=== PATIENT | female | born 1950 | race Caucasian/White ===

== ENCOUNTER 2017-03-17 10:13 | Day surgery (SDC) | payer OTHER ==
[~2017-03-17 10:13] MED LIST: EPINEPHrine 1 MG/ML SDV ONE; Lactated Ringers 1,000 ML IV SCH
--- NOTE | 2017-03-17 13:28 | PCM.PREANE ---
Preanesthetic Assessment - Procedure Proposed Procedure: nasal septal button placement - Anesthesia/Transfusion/Family Hx Anesthesia History: Prior Anesthesia Without Reaction Family History of Anesthesia Reaction: No Transfusion History: No Prior Transfusion(s) - Review of Systems General: No Symptoms Pulmonary: Other Cardiovascular: Other (HTN; hypercholesterolemia) Gastrointestinal: No Symptoms Neurological: No Symptoms Other: Reports: None - Physical Assessment NPO Status Date: 03/16/17 NPO Status Time: 23:00 O2 Sat by Pulse Oximetry: 99 Respiratory Rate: 16 Vital Signs: Last Vital Signs Temp 98.6 F 03/17/17 10:40 Pulse 87 03/17/17 10:40 Resp 16 03/17/17 10:40 BP 144/84 H 03/17/17 10:40 Pulse Ox 99 03/17/17 10:40 Height: 5 ft 6 in Weight: 151 lb ASA Class: 2 Mental Status: Alert & Oriented x3 Airway Class: Mallampati = 2 Dentition: Reports: Normal Dentition Thyro-Mental Finger Breadths: 3 Mouth Opening Finger Breadths: 3 ROM/Head Extension: Full Lungs: Clear to Auscultation, Normal Respiratory Effort Cardiovascular: Regular Rate, Regular Rhythm, No Murmurs - Allergies Allergies/Adverse Reactions: Allergies Allergy/AdvReac Type Severity Reaction Status Date / Time No Known Allergies Allergy Verified 03/14/17 13:17 - Blood Blood Available: No Product(s) Available: None - Anesthesia Plan Pre-Op Medication Ordered: None - Acknowledgements Anesthesia Type Planned: General Anesthesia (vs MAC (deep)) Pt an Appropriate Candidate for the Planned Anesthesia: Yes Alternatives and Risks of Anesthesia Discussed w Pt/Guardian: Yes Pt/Guardian Understands and Agrees with Anesthesia Plan: Yes PreAnesthesia Questionnaire HEENT History: Reports: Allergic Rhinitis, Other (See Below) Other HEENT History: wears glasses Cardiovascular History: Reports: High Cholesterol, Hypertension Genitourinary History: Reports: None D[employer]LL[employer]'S OFFSIDER History: Reports: Musculoskeletal History: Reports: Arthritis - Past Surgical History Head Surgeries/Procedures: Reports: None Female Surgical History: Reports: Tubal Ligation - SUBSTANCE USE Smoking Status *Q: Never Smoker Days Per Week of Alcohol Use: 3 Number of Drinks Per Day: 1 Total Drinks Per Week: 3 Recreational Drug Use History: No - HOME MEDS Home Medications: Home Meds Lisinopril/Hydrochlorothiazide [Lisinopril-Hctz 10-12.5 mg Tab] 1 tab PO DAILY 03/14/17 [History] Potassium Chloride 10 meq PO DAILY 03/14/17 [History] - CURRENT (IN HOUSE) MEDS Current Meds: Current Medications Lactated Ringer's (Ringers, Lactated) 1,000 mls @ 100 mls/hr IV ASDIRECTED LIA Last Admin: 03/17/17 11:00 Dose: 100 mls/hr Discontinued Medications Epinephrine HCl (Adrenalin) Confirm Administered Dose 1 mg .ROUTE .STK-MED ONE Stop: 03/17/17 07:47
[2017-03-17] MEDS ORDERED: Lidocaine 2% 5 ML SDV ONE (13:54)
[2017-03-17] MEDS ORDERED: fentaNYL 100 MCG/2 ML SDV ONE (13:55)
[2017-03-17] MEDS ORDERED: Propofol 200 MG/20 ML SDV ONE ×2 (13:55→15:11)
[2017-03-17] MEDS ORDERED: Midazolam 1 MG/ML 2 ML SDV ONE (13:55)
[2017-03-17] MEDS ORDERED: Lidocaine 2% with EPINEPHrine 1:100,000 20 ML MDV ONE (14:11)
--- NOTE | 2017-03-17 14:17 | PCM.HPR ---
H & P Addendum review - H & P Addendum Review Date of Original H & P: 03/02/17 Date Reviewed: 03/17/17 Time Reviewed: 14:00 Patient was Examined: No Changes
--- NOTE | 2017-03-17 14:37 | PCM.OPNOTE ---
- General Post-Op/Procedure Note Date of Surgery/Procedure: 03/17/17 Operative Procedure(s): Insertion of nasal septal button Findings: Anterior nasal septal perforation - 2.5 cm X 2 cm; clean edges Pre Op Diagnosis: Nasal septal perforation, crusting, nasal pain, post nasal drip Post-Op Diagnosis: Nasal septal perforation, crusting, nasal pain, post nasal drip Anesthesia Technique: Moderate Sedation Primary Surgeon: Supriya Wiggins Anesthesia Provider: Kumar Garcia Condition: Good Free Text/Narrative:: Indications: Nasal septal perforation, crusting, nasal pain, post nasal drip. She has tried topical nasal medications without much relief. Operative procedure: An informed consent was obtained and patient was brought back to operating room and laid supine on the operating table. Anesthesia was - moderate sedation - please see anesthesia notes for details. Topical anesthesia was administered with a 20% benzocaine spray. Local anesthetic was injected - 2% lidocaine with [id number] epinephrine - 3mls was used. The septal perforation was sized - 2.5cm X 2.0 cm. Endoscope was used for photo documentation. The septal button was trimmed to size - with minimal overlapping edges over the adjacent nasal septum. A slit was made in the button from periphery to the hub and this was hinged over the septum posteriorly. The edge was then grasped from the contralateral side with hemostat and rotated like a corkskrew till it was a snug fit. Bacitracin ointment was applied. This concluded the procedure an the patient was handed back to anesthesia for recovery.
--- NOTE | 2017-03-17 15:49 | PCM.POSTAN ---
POST ANESTHESIA ASSESSMENT - MENTAL STATUS Mental Status: Alert, Oriented - VITAL SIGNS Pulse Rate: 82 SaO2: 96 (ROOM AIR) Resp Rate: 12 Blood Pressure: 134/76 Temperature: 2 C - RESPIRATORY Respiratory Status: Respiratory Rate WNL, Airway Patent, O2 Saturation Stable - CARDIOVASCULAR CV Status: Pulse Rate WNL, Blood Pressure Stable - GASTROINTESTINAL GI Status: No Symptoms - POST OP HYDRATION Hydration Status: Adequate & Stable - OBSERVATIONS Free Text/Narrative:: Responds verval to verbal comfortable. Warm pink and dri vitals in stable limits
--- NOTE | 2017-03-17 16:04 | PCM48HPAN ---
Post Anesthesia Note - EVALUATION WITHIN 48HRS OF ANESTHETIC Vital Signs in Normal Range: Yes Patient Participated in Evaluation: Yes Respiratory Function Stable: Yes Airway Patent: Yes Cardiovascular Function Stable: Yes Hydration Status Stable: Yes Pain Control Satisfactory: Yes Nausea and Vomiting Control Satisfactory: Yes Mental Status Recovered: Yes - COMMENTS/OBSERVATIONS Free Text/Narrative:: No complaints: wants to go home JOHN
[2017-03-17] MEDS ORDERED: Acetaminophen 325 MG Tab PO PRN (16:11)
[2017-03-17] MEDS ORDERED: Acetaminophen 1,000 MG in Premix Bag 1 BAG IV ONE (16:26)
== END 2017-03-17 17:20 | disposition home or self-care (01) ==
LOC: MW.SDS 10:13
PROVIDERS: ATTEND Otolaryngology
DX: J34.89 Other specified disorders of nose and nasal sinuses (principal); I10 Essential (primary) hypertension; E78.00 Pure hypercholesterolemia, unspecified; M19.90 Unspecified osteoarthritis, unspecified site; J30.9 Allergic rhinitis, unspecified; Z87.891 Personal history of nicotine dependence; Z79.51 Long term (current) use of inhaled steroids; Z79.899 Other long term (current) drug therapy; Z82.62 Family history of osteoporosis; Z83.3 Family history of diabetes mellitus; Z80.3 Family history of malignant neoplasm of breast; Z98.51 Tubal ligation status
CPT/HCPCS: 30220; J2250; J3010; J7120; 00160; J0171; J2704